=== PATIENT | female | born 1975 | race Caucasian/White ===

== ENCOUNTER 2024-05-28 06:32 | Day surgery (SDC) | payer BC ==
[2024-05-26 09:35] VITALS: BMI 33.0
[2024-05-28 07:14] VITALS: RESP 16
[2024-05-28] MEDS ORDERED: EPINEPHrine/PF 1 MG/1 ML (1:1,000) AMPULE ONE (07:29)
[2024-05-28] MEDS ORDERED: BUPIVACAINE HCL/EPINEPHRINE/PF 30 ML VIAL IJ ONE (07:30)
[2024-05-28] MEDS ORDERED: LIDOCAINE HCL 2% (20ML MULTI-DOSE VIAL) ONE (07:30)
[2024-05-28] MEDS ORDERED: SODIUM BICARBONATE 8.4% 50 MEQ/50 ML VIAL ONE (07:30)
[2024-05-28] MEDS ORDERED: HEPARIN NA (PORCINE) 5,000 UNITS/ML 1ML VIAL SQ ONE (07:58)
[2024-05-28] MEDS ORDERED: MIDAZOLAM HCL 2 MG/2 ML SINGLE DOSE VIAL ONE (08:02)
[2024-05-28] MEDS ORDERED: PROPOFOL 20 ML ONE ×2 (08:03→08:57)
[2024-05-28] MEDS ORDERED: SUCCINYLCHOLINE CHLORIDE 200 MG/10 ML SYRINGE ONE (08:03)
[2024-05-28] MEDS ORDERED: ACETAMINOPHEN INJECTION 100 ML ONE (08:04)
[2024-05-28] MEDS ORDERED: PROPOFOL 40 ML ONE (08:49)
[2024-05-28] MEDS ORDERED: ceFAZolin SODIUM 1 GM VIAL ONE (08:54)
[2024-05-28] MEDS: BUPIVACAINE 0.25% /EPI 1:200,000 10 ML VIAL INF ONE (09:07)
[2024-05-28] MEDS ORDERED: FENTANYL CITRATE/PF 50 MCG/ML VIAL ONE ×2 (11:21→11:40)
[2024-05-28] MEDS ORDERED: LACTATED RINGERS SOLUTION 1,000 ML IV SCH (11:30)
[2024-05-28 12:15] VITALS: TEMP 97
[2024-05-28] MEDS: traMADol HCL 50 MG TABLET PO ONE (13:04)
[2024-05-28 15:56] VITALS: BP 107/62; PULSE 96
== END 2024-05-28 13:45 | disposition home or self-care (01) ==
LOC: FASU 06:32
PROVIDERS: ATTEND Plastic Surgery
PROC: 0JX60ZB Transfer Chest Subcutaneous Tissue and Fascia with Skin and Subcutaneous Tissue, Open Approach (ICD-10-PCS; 2024-05-28)
PROC: 0JX60ZB Transfer Chest Subcutaneous Tissue and Fascia with Skin and Subcutaneous Tissue, Open Approach (ICD-10-PCS; 2024-05-28)
PROC: 0HB7XZZ Excision of Abdomen Skin, External Approach (ICD-10-PCS; 2024-05-28)
PROC: 0HB5XZZ Excision of Chest Skin, External Approach (ICD-10-PCS; 2024-05-28)
PROC: 0HRV37Z Replacement of Bilateral Breast with Autologous Tissue Substitute, Percutaneous Approach (ICD-10-PCS; principal; 2024-05-28 09:07)
DX: C50.912 Malignant neoplasm of unspecified site of left female breast (principal); Z90.13 Acquired absence of bilateral breasts and nipples; N65.1 Disproportion of reconstructed breast; L90.5 Scar conditions and fibrosis of skin
CPT/HCPCS: 88305-TC; 94760; J0131